=== PATIENT | male | born 1955 | race Caucasian/White ===

== ENCOUNTER 2017-11-05 05:35 | Day surgery (SDC) | payer OTHER ==
[2017-11-05] MEDS ORDERED: ONDANSETRON 4 MG INJ (07:00)
[2017-11-05] MEDS ORDERED: CEFAZOLIN 1 GM INJ (07:00)
[2017-11-05] MEDS: INSULIN REGULAR, HUMAN 100 UNIT/1 ML 3ML VIAL SC ×2 (07:20→09:00)
[2017-11-05] MEDS ORDERED: BUPIVACAINE 0.5% (SDV) 30 ML INJ (07:26)
[2017-11-05] MEDS ORDERED: ONDANSETRON 4 MG INJ IV (07:30)
[2017-11-05] MEDS ORDERED: FENTAnyl 50 MCG/ML VIAL IV ×2 (07:30)
[2017-11-05] MEDS ORDERED: LABETALOL HCL 20MG INJ IV (07:30)
[2017-11-05] MEDS ORDERED: MEPERIDINE 25 MG INJ IV (07:30)
[2017-11-05] MEDS ORDERED: HYDROmorphONE (0.2 MG/ML) 10ML SYG IV ×3 (07:30)
[2017-11-05] MEDS ORDERED: DIPHENHYDRAMINE 50 MG INJ IV (07:30)
[2017-11-05] MEDS ORDERED: IPRATROPIUM (NEB) 0.5 MG/2.5 ML AMP HHN (07:30)
[2017-11-05] MEDS ORDERED: hydrALAzine 20 MG INJ IV (07:30)
[2017-11-05] MEDS ORDERED: PROPOFOL 20 ML (07:48)
[2017-11-05] MEDS ORDERED: MIDAZOLAM 1 MG/ML 2 ML INJ (07:48)
[2017-11-05] MEDS ORDERED: FENTAnyl 50 MCG/ML VIAL ×2 (07:48→08:11)
[2017-11-05] MEDS ORDERED: LIDOCAINE 2% (SDV) 5 ML INJ (07:49)
[2017-11-05] MEDS ORDERED: METOCLOPRAMIDE 10 MG INJ (07:49)
[2017-11-05] MEDS: BUPIVACAINE 0.25% (MPF) 30 ML INJ (08:10)
[2017-11-05] MEDS: LIDOCAINE 2% (MDV) 20 ML INJ (08:10)
[2017-11-05] MEDS ORDERED: HYDROCODONE/APAP (5/325) TAB PO (08:30)
== END 2017-11-05 09:54 | disposition home or self-care (01) ==
LOC: SDS 05:35
DX: D17.1 Benign lipomatous neoplasm of skin and subcutaneous tissue of trunk (principal); E11.9 Type 2 diabetes mellitus without complications; I10 Essential (primary) hypertension
CPT/HCPCS: 14301; 82962; 88307